=== PATIENT | female | born 1995 | race Caucasian/White ===

== ENCOUNTER 2019-08-01 | Emergency (ER) | payer OTHER, SELFPAY ==
[2019-08-01 00:03] VITALS: BP 132/70; PULSE 58; RESP 16; TEMP 36.3; O2SAT 99
--- NOTE | 2019-08-01 00:32 | ED.DENTAL ---
HPI - Dental/Oral General Chief complaint: Dental/Oral Stated complaint: Possible Abcessed tooth Source: patient Mode of arrival: ambulatory Limitations: no limitations History of Present Illness HPI Narrative: Cyst on roof of mouth x 1 week. Pain in cyst and along left maxillary gum line x 2 days. Unable to sleep tonight because of severe, sharp pain. It's made worse when she applies pressure to the area. She c/o of foul taste in her mouth this tonight. She sees Dr. Sauceda in [place]. No hx of tooth decay. 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 Recently had a box of sodas spill over onto her face. Takes OCP. Last LMP ~ 5 weeks ago. Cervical excision last month. Exacerbating factors: other (air flowing over her teeth) Related Data Allergies Allergy/AdvReac Type Severity Reaction Status Date / Time cefaclor Allergy Unknown Rash Verified 10/03/17 12:15 Penicillins Allergy Unknown Rash Verified 10/03/17 12:15 Review of Systems Constitutional: Constitutional: Denies chills and Denies fever(s) Gastrointestinal: Gastrointestinal: Denies nausea and Denies vomiting [facility] Past Medical History Medical History (Updated 08/01/19 @ 00:48 by Inder Huitron MD) Cervical cancer Surgical History Surgical History (Updated 08/01/19 @ 00:48 by Inder Huitron MD) Status post cervicectomy Social History Social History (Updated 08/01/19 @ 00:55 by Inder Huitron MD) Smoking status: Current every day smoker Substance use: current Substance use type: marijuana Last use: about once a week Exam Const: General: no acute distress Orientation/consciousness: patient oriented x3 HENMT: Face and sinus: other (left forehead, periorbital and maxillar bruising. No facial swelling. ) Mouth: No restricted motion Teeth and gingiva: dentition normal Teeth image: 1. abscess draining yellow fluid. Throat: posterior oropharynx normal Other: No facial swelling Bruising left forehead, periorbital and cheek area. Tender ~ 1 cm anterior palate cyst. bucchal aspect of Neck: Neck: no lymphadenopathy noted Course Course Emergency Course: Pt's pain not controlled with ibuprofen. Pt. warned of addictive nature of opioids. Given 1 table here, Rx for #6. Dose of clindamycin given. Pt. related care time 20 minutes. Vital Signs Vital signs: Vital Signs Temperature 36.3 C L 08/01/19 00:03 Pulse Rate 58 L 08/01/19 00:03 Respiratory Rate 16 08/01/19 00:03 Blood Pressure 132/70 08/01/19 00:03 Pulse Oximetry 99 08/01/19 00:03 Temperature 36.3 C L 08/01/19 00:03 Pulse Rate 58 L 08/01/19 00:03 Respiratory Rate 16 08/01/19 00:03 Blood Pressure 132/70 08/01/19 00:03 Pulse Oximetry 99 08/01/19 00:03 MDM - Dental/Oral Differential Diagnosis Differential diagnosis: Likely dental caries and dental abscess Discharge Plan Discharge Clinical Impression: Dental abscess Patient Disposition: Home, Self-Care Condition: Stable Instructions: Antibiotic Form, Dental Abscess (ED) Additional Instructions: Follow up with Dr. Sauceda in [place] Prescriptions: New hydrocodone-acetaminophen [[place]] 5-325 mg tablet 1 tablet PO Q6H PRN (Reason: pain) Qty: 6 RF: 0 clindamycin HCl 300 mg capsule 300 mg PO Q6H Qty: 27 RF: 0 Follow-up/Referrals: UNKNOWN,DOCTOR [Primary Care Provider] - Stand Alone Forms: Work/School Release IP Time of Disposition: 00:38 Discharge Date/Time: 08/01/19 00:47
[2019-08-01] MEDS: CLINDAMYCIN HCL 150 MG CAP 300 MG PO (00:43)
== END 2019-08-01 00:47 | disposition home or self-care (01) ==
PROVIDERS: Emergency Provider Family Medicine
DX: K04.7 Periapical abscess without sinus (principal)
CPT/HCPCS: 99283; A9270

== ENCOUNTER 2019-08-05 12:53 | Emergency (ER) | payer OTHER, SELFPAY ==
--- NOTE | 2019-08-05 13:00 | ED.DENTAL ---
HPI - Dental/Oral General Chief complaint: Dental/Oral Stated complaint: toothache Time Seen by Provider: 08/05/19 13:09 Source: patient Mode of arrival: ambulatory Limitations: no limitations History of Present Illness HPI Narrative: 23-year-old woman comes in today complaining of pain, swelling and drainage from a wound on the top of her mouth as well as swelling in her upper lip and around her upper incisors. She denies fever, nausea, vomiting, difficulty swallowing, difficulty breathing or nasal drainage. Her symptoms started a week or 2 ago. She has been on clindamycin since July 31. MD Complaint: tooth pain Teeth map: 1. Abscess draining pus and blood. 2. Swelling and tenderness. Onset (ago): week(s) Duration: constant Severity: severe Relieving factors: prescription analgesics Exacerbating factors: chewing Context: history of dental caries Associated symptoms: gum swelling Treatment prior to arrival: oral analgesic Related Data Home Medications Medication Instructions Recorded Confirmed tramadol 50 mg PO PRN PRN 08/05/19 08/05/19 Allergies Allergy/AdvReac Type Severity Reaction Status Date / Time cefaclor Allergy Unknown Rash Verified 10/03/17 12:15 Penicillins Allergy Unknown Rash Verified 10/03/17 12:15 Review of Systems Constitutional: Constitutional: Denies chills, Denies fever(s) and Denies weakness Eyes: Eyes: Denies change in vision and Denies photophobia ENT: Denies dysphagia, Denies nasal congestion and Denies sore throat Cardiovascular: Cardiovascular: Denies chest pain and Denies radiating jaw, neck or arm pain Respiratory: Respiratory: Denies cough, Denies dyspnea and Denies wheezing Gastrointestinal: Gastrointestinal: Denies abdominal pain, Denies diarrhea, Denies nausea and Denies vomiting Musculoskeletal: Musculoskeletal: Denies arthralgias and Denies joint swelling Integumentary/Breasts: Skin/Breast: Denies pruritus, Denies erythema and Denies rash Neurologic: Denies vertigo, Denies dizziness and Denies syncope Hematologic/Lymphatic: Hematologic/Lymphatic: Denies easy bleeding and Denies easy bruising Allergic/Immunologic: Allergic/Immunologic: Reports as per HPI, Reports lip swelling, Denies throat swelling, Denies tongue swelling and Denies wheezing PMFSH Past Medical History Medical History Cervical cancer Surgical History Surgical History Status post cervicectomy Social History Social History Smoking status: Current every day smoker Substance use: current Substance use type: marijuana Last use: about once a week Exam Const: General: healthy appearing and alert Orientation/consciousness: patient oriented x3 Other: Moderate acute distress HENMT: Ears: external ears normal, TM's normal bilaterally and EAC's normal Mouth: Yes Normal oral and palatal mucosa present and Yes moist mucous membranes Throat: posterior oropharynx normal Other: there is edematous swelling of the buccal gingiva adjacent to the upper incisors. there is a 1 x 2 cm abscess which is draining pus and blood on the roof of the mouth anteriorly. Mild percussion tenderness to the upper incisors. Eyes: Conjunctivae: conjunctivae normal Pupils: Equal, round and reactive pupils present EOM: EOMs intact bilaterally Resp: Effort & Inspection: normal respiratory effort, not labored, no retractions and no use of accessory muscles Auscultation: clear to auscultation bilaterally Cardio: Rate: regular rate Rhythm: regular rhythm Heart sounds: no murmurs Skin: General skin exam: normal color, no jaundice and no pallor Rashes: no rashes Neuro: General: patient oriented x3, moves all extremities, no focal motor deficits and CN's II-XI intact bilaterally Extrem: General: normal to inspection and no clubbing, cyanosis or
[2019-08-05 13:11] VITALS: BP 102/59; PULSE 73; RESP 16; TEMP 36.7; O2SAT 97
== END 2019-08-05 13:39 | disposition home or self-care (01) ==
PROVIDERS: Emergency Provider Emergency Medicine
DX: K04.7 Periapical abscess without sinus (principal)
CPT/HCPCS: 99283

== ENCOUNTER 2019-11-02 13:25 | Emergency (ER) | payer SELFPAY ==
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
[2019-11-02 13:30] VITALS: BP 106/63; PULSE 70; RESP 14; TEMP 37.3; O2SAT 99
[2019-11-02 14:03] VITALS: PULSE 69; RESP 13; O2SAT 100
== END 2019-11-02 14:03 | disposition home or self-care (01) ==
PROVIDERS: Emergency Provider Emergency Medicine
DX: Z04.3 Encounter for examination and observation following other accident (principal)
CPT/HCPCS: 99282

== ENCOUNTER 2020-01-14 11:50 | Outpatient (CLI) | payer OTHER, SELFPAY | END 2020-01-14 11:51 | disposition home or self-care (01) | PROVIDERS: Visit Provider Obstetrics & Gynecology Gynecology | DX: Z32.01 Encounter for pregnancy test, result positive (principal) | CPT/HCPCS: 36415; 84702 ==

== ENCOUNTER 2020-01-16 08:06 | Outpatient (CLI) | payer OTHER, SELFPAY | END 2020-01-16 08:07 | disposition home or self-care (01) | LOC: CHSLAB 08:10 | PROVIDERS: PCP Obstetrics & Gynecology Gynecology; Visit Provider Obstetrics & Gynecology Gynecology | DX: Z32.01 Encounter for pregnancy test, result positive (principal) | CPT/HCPCS: 36415; 84702 ==

== ENCOUNTER 2020-01-21 10:01 | Outpatient (CLI) | payer OTHER, SELFPAY ==
--- NOTE | ~2020-01-21 | US_ITS ---
EXAMINATION: US OB <= 14 weeks fetus DATE: 01/21/2020 10:49 INDICATION: Spotting during first trimester of TECHNIQUE: Real-time pelvic ultrasound utilizing transabdominal probe was performed. The david archuleta radiologist was not present for the study. COMPARISON: None. FINDINGS: The uterus measures 7.7 x 7.5 x 7.4 cm. There is an intrauterine gestational sac. A yolk sac and fet al pole are identified. The crown rump length measures 2.3 cm, which correlates with an estimated ges tational age of 9 weeks and 0 days. heart motion is identified measuring 165 beats per minute ( bpm) by M-mode Doppler. The right ovary measures 3.6 x 2.4 x 2.6 cm. The left ovary measures 2.4 x 1.9 x 2.9 cm. Vascular milagro w identified at both ovaries on color Doppler. There is no free fluid in the pelvis. IMPRESSION: 1. Single living fetus with heart rate of 165 bpm. 2. Gestational age by ultrasound of 9 weeks 0 day(s) +/- 6 day(s) with ultrasound estimated date of delivery (SANDRA) of 08/25/2020. Reviewed, dictated and finalized at location B. IMPRESSION: 1. Single living fetus with heart rate of 165 bpm. 2. Gestational age by ultrasound of 9 weeks 0 day(s) +/- 6 day(s) with ultraso und estimated date of delivery (SANDRA) of 08/25/2020.
== END 2020-01-21 10:02 | disposition home or self-care (01) ==
PROVIDERS: PCP Obstetrics & Gynecology Gynecology; Visit Provider Obstetrics & Gynecology Gynecology
DX: O26.851 Spotting complicating pregnancy, first trimester (principal)
CPT/HCPCS: 76801

== ENCOUNTER 2020-02-27 14:01 | Outpatient (CLI) | payer OTHER, SELFPAY ==
[2020-02-27 14:14] LABS: Basophils Absolute Auto 0.01 K/mm3 (0.00-0.10); Basophils Percent Auto 0.1 % (0.0-1.0); Eosinophils Absolute Auto 0.03 K/mm3 (0.02-0.50); Eosinophils Percent Auto 0.4 % (1.0-6.0); Hematocrit 38.3 % (35.0-49.0); Immature Granulocyte Absolute 0.05 K/mm3 (0.00-0.00); Immature Granulocyte Percent A 0.7 % (0.0-0.0); Lymphocytes Absolute Auto 1.92 K/mm3 (1.10-4.50); Lymphocytes Percent Auto 26.3 % (18.0-42.0); Mean Corpuscular HGB Conc 33.9 g/dL (32.0-36.0); Mean Corpuscular Volume 91.2 fL (78.0-102.0); Mean Platelet Volume 9.9 fl (9.2-11.8); Monocytes Absolute Auto 0.59 K/mm3 (0.10-0.90); Monocytes Percent Auto 8.1 % (2.0-11.0); Neutrophils Absolute Auto 4.7 K/mm3 (1.7-7.2); Neutrophils Percent Auto 64.4 % (50.0-70.0); Platelet Count Result 165 K/mm3 (150-420); Red Cell Distribution Width 12.4 % (11.6-14.4); White Blood Count 7.3 K/mm3 (4.8-10.8)
[2020-02-27 14:35] LABS: Hemoglobin A1C 4.7 % (<5.7)
[2020-02-27 15:04] LABS: HIV 1 P24 AG Negative (Negative); HIV 1/2 AB Negative (Negative)
[2020-02-29 18:52] LABS: RPR Screen Non-Reactive (Non-Reactive)
[2020-03-01 19:22] LABS: Hepatitis B Surface Antigen Nonreactive (Nonreactive)
[2020-03-05 11:16] LABS: Vitamin D 25 Hydroxy 15 ng/mL (30-100)
== END 2020-02-27 14:02 | disposition home or self-care (01) ==
LOC: CHSLAB 14:03
PROVIDERS: Visit Provider Obstetrics & Gynecology Gynecology
DX: Z34.92 Encounter for supervision of normal pregnancy, unspecified, second trimester (principal)
CPT/HCPCS: 36415; 82306; 83036; 85025; 86592; 86703; 86762; 86850; 86900; 86901

== ENCOUNTER 2020-06-09 10:15 | Outpatient (CLI) | payer OTHER, SELFPAY ==
[2020-06-09 11:50] LABS: Hematocrit 36.2 % (35.0-49.0); Hemoglobin 12.3 g/dL (12.0-15.0)
[2020-06-09 11:59] LABS: Glucose 1 Hour PP 50gm Dose 105 mg/dL (70-130)
[2020-06-09 12:24] LABS: HIV 1 P24 AG Negative (Negative); HIV 1/2 AB Negative (Negative)
[2020-06-12 11:58] LABS: Vitamin D 25 Hydroxy 18 ng/mL (30-100)
== END 2020-06-09 10:16 | disposition home or self-care (01) ==
LOC: CHSLAB 10:16
PROVIDERS: PCP Obstetrics & Gynecology Gynecology; Visit Provider Obstetrics & Gynecology Gynecology
DX: Z34.93 Encounter for supervision of normal pregnancy, unspecified, third trimester (principal)
CPT/HCPCS: 36415; 82306; 82947; 85014; 85018; 86703

== ENCOUNTER 2020-06-29 10:39 | Inpatient (IN) | payer OTHER, SELFPAY ==
[2020-06-29] VITALS (53 sets, daily range): BP systolic 86–124; BP diastolic 41–72; PULSE 57–112; TEMP 35.8–36.8; O2SAT 95–100; BMI 19.3
[2020-06-29] MEDS: TERBUTALINE SULFATE 1 MG/ML VIAL 0.25 MG SUB-Q (11:27)
[2020-06-29] MEDS: BETAMETHASONE SOD PHOS/ACETATE 30 MG/5 ML VIAL 12 MG IM (11:42)
[2020-06-29] MEDS: MAGNESIUM SULF 4 GM/WATER100ML 4 GM/100 ML BAG IVPB (11:45)
[2020-06-29] MEDS: CLINDAMYCIN 900 MG/D5W 50 ML 900 MG/50 ML PIGGYBACK 50 MG IVPB ×2 (12:11→20:19)
--- NOTE | 2020-06-29 12:23 | OBADM ---
This patient, Aurelia Rueda, admitted to the OB room OB Post [facility] for observation. Patient/family oriented to hospital policies and general routines including ID bracelet, bed and alarms, visiting hours, pain management, procedures, bathroom and other care routines, personal items, smoking policy, room service/diet, and visiting hours. Patient/Family are encouraged to report perceived risks to care and to ask questions if they do not understand what they are told or what they should do.
[2020-06-29 12:29] LABS: Add Urine Microscopic? YES; Appearance Urine Cloudy (Clear); Bacteria Urine 1+ /hpf; Bilirubin Urine Negative (Negative); Blood Urine Negative (Negative); Color Urine Yellow (Yellow); Glucose Urine UA Negative (Negative); Ketones Urine Negative (Negative); Leukocyte Esterase Ur Negative LEU/UL (Negative); Mucus Urine Few /lpf; Nitrate Urine Negative (Negative); Protein Urine 2+ mg/dL (Negative); RBC Urine 0-2 /hpf (0-2); Specific Grav Ur 1.021 (1.001-1.035); Squamous Epithelial Cell Urine Many /hpf (Few); Urobilinogen Urine Negative mg/dL (<2.0); WBC Urine 0-3 /hpf
[2020-06-29] MEDS: MAGNESIUM SULF 20GM/WATER500ML 500 ML 50 MG IV CONT ×2 (12:38→22:31)
[2020-06-29] MEDS: ONDANSETRON INJ 4 MG/2 ML VIAL IV PUSH (12:45)
--- NOTE | 2020-06-29 13:09 | WPDOBADMIT ---
Obstetrics - Admit Note Admission Note: record reviewed. No pertinent additions to the history and/or any subsequent changes in the physical findings that are not consistent with the expected course of the were found. Additions to the history and/or subsequent changes in the physical findings follow. Here at 31 weeks with active labor. Noted to be 6 cm at admission with contractions q 5 min. Given Terb and Magnesium. Given steroids. Will try to prolong delivery if possible to get steroids on board. Discussed with patient possible transfer and recommend to deliver here and stabilize rather than risk SROM and delivery in the ambulance. Patient agrees to plan. Contractions now rare and milder. Continue Magnesium at 2 g/h. FHTs reassuring.
[2020-06-29 13:24] LABS: Amphetamine Screen Urine Negative (Negative)
[2020-06-29 13:29] LABS: Barbiturate Screen Urine Negative (Negative); Benzodiazepines Screen Urine Negative (Negative)
[2020-06-29 13:29] LABS: Basophils Percent Auto 0.3 % (0.2-1.2); Eosinophils Percent Auto 0.2 % (0-4.4); Hematocrit 35.3 % (37.0-47.0); Hemoglobin 12.2 g/dL (12.0-15.0); Immature Granulocyte Percent A 0.9 % (0-0.5); Lymphocytes Absolute Auto 1.39 K/mm3 (0.9-3.2); Lymphocytes Percent Auto 12.9 % (18.3-44.2); Mean Corpuscular HGB Conc 34.6 g/dl (32-36); Mean Corpuscular Hemoglobin 31.3 pg (26-34); Mean Corpuscular Volume 90.5 fl (80-100); Mean Platelet Volume 9.9 fl (7.4-10.4); Monocytes Absolute Auto 0.4 K/mm3 (0.1-0.6); Monocytes Percent Auto 3.8 % (2.6-8.5); Neutrophils Absolute Auto 8.8 K/mm3 (1.3-6.7); Neutrophils Percent Auto 81.9 % (45.5-73.1); Platelet Count Result 158 k/mm3 (150-375); Red Cell Distribution Width 12.9 % (11.5-14.5); White Blood Count 10.8 K/mm3 (4.5-10.0)
[2020-06-29 13:30] LABS: Cannabinoid Screen Urine Positive (Negative); Cocaine Screen Urine Negative (Negative); Methadone Screen Urine Negative (Negative); Opiate Screen Urine Negative (Negative); Phencyclidine Screen Urine Negative (Negative)
[2020-06-29 13:31] LABS: HIV 1/2 Ab P24 Ag Result Negative (Negative)
--- NOTE | 2020-06-29 19:18 | PM.OBPNVD ---
OB - PN: Subj Subjective Date/time seen: 06/29/20 19:18 Interval history: Not feeling many contractions. Feels ok on Magnesium OB - PN: Obj Data Labs CBC & Chem 7: 06/29/20 13:22 Labs: Laboratory Results - last 24 hr 06/29/20 06/29/20 06/29/20 12:05 12:15 12:15 WBC RBC Hgb Hct MCV MCH MCHC RDW Plt Count MPV Immature Gran % (Auto) Neut % (Auto) Lymph % (Auto) [place] % (Auto) Eos % (Auto) Baso % (Auto) Lymph # (Auto) [place] # (Auto) Eos # (Auto) Baso # (Auto) Abs Immat Gran (auto) Absolute Neuts (auto) Absolute Nucleated RBC Nucleated RBC % Urine Color Yellow Urine Appearance Cloudy H Urine pH 8.0 Ur Specific [place] 1.021 Urine Protein 2+ H Urine Glucose (UA) Negative Urine Ketones Negative Ur Blood (Man) Negative Urine Nitrate Negative Urine Bilirubin Negative Urine Urobilinogen Negative Leukocyte Esterase Rfl Negative Urine RBC 0-2 Urine WBC 0-3 Ur Squamous Epith Cells Many H Urine Bacteria 1+ H Urine Mucus Few H Urine Opiates Screen Negative Urine Methadone Screen Negative Ur Barbiturates Screen Negative Ur Phencyclidine Scrn Negative Ur Amphetamine Screen Negative U Benzodiazepines Scrn Negative Urine Cocaine Screen Negative U Cannabinoids Screen Positive A HIV 1&2 Ab/P24 Ag 4thGn Blood Type O Positive Antibody Screen Negative 06/29/20 06/29/20 12:15 13:22 WBC 10.8 H RBC 3.90 L Hgb 12.2 Hct 35.3 L MCV 90.5 MCH 31.3 MCHC 34.6 RDW 12.9 Plt Count 158 MPV 9.9 Immature Gran % (Auto) 0.9 H Neut % (Auto) 81.9 H Lymph % (Auto) 12.9 L [place] % (Auto) 3.8 Eos % (Auto) 0.2 Baso % (Auto) 0.3 Lymph # (Auto) 1.39 [place] # (Auto) 0.4 Eos # (Auto) 0.0 Baso # (Auto) 0.0 Abs Immat Gran (auto) 0.10 H Absolute Neuts (auto) 8.8 H Absolute Nucleated RBC 0.0 Nucleated RBC % 0.0 Urine Color Urine Appearance Urine pH Ur Specific [place] Urine Protein Urine Glucose (UA) Urine Ketones Ur Blood (Man) Urine Nitrate Urine Bilirubin Urine Urobilinogen Leukocyte Esterase Rfl Urine RBC Urine WBC Ur Squamous Epith Cells Urine Bacteria Urine Mucus Urine Opiates Screen Urine Methadone Screen Ur Barbiturates Screen Ur Phencyclidine Scrn Ur Amphetamine Screen U Benzodiazepines Scrn Urine Cocaine Screen U Cannabinoids Screen HIV 1&2 Ab/P24 Ag 4thGn Negative Blood Type Antibody Screen OB - PN A/P Assessment and Plan (1) 31 to 32 weeks gestation of : Status: Acute Assessment and Plan: 31 6/7 wks (2) labor: Code(s): O60.00 - labor without delivery, unspecified trimester Status: Acute Assessment and Plan: With advanced dilation contractions rare continue magnesium and abx steroids given at 1142 am today (3) Breech presentation: Code(s): O32.1XX0 - Maternal care for breech presentation, not applicable or unspecified Status: Acute Assessment and Plan: Was considering transfer but with double footling breech presentation at 6 cm dilated recommend continue with plan here. Reviewed need for csection for delivery when water breaks or if contractions recur in a pattern. Patient and her mother agree to plan. Time Spent With Patient Time: Total time spent is greater than 50% in coordination of care (as documented) at patient's floor/unit and/or counseling patient: Exam Narrative: Exam Narrative: bedside u/s-double footling breech with grossly normal BRISA
[2020-06-29] MEDS: FAMOTIDINE 20 MG/2 ML VIAL IV PUSH (20:00)
[2020-06-30] VITALS (43 sets, daily range): BP systolic 91–113; BP diastolic 38–67; PULSE 57–94; RESP 15–16; TEMP 35.8–36.9
[2020-06-30] MEDS: LACTATED RINGERS 1,000 ML 75 ML IV CONT ×2 (03:22→19:15)
[2020-06-30] MEDS: CLINDAMYCIN 900 MG/D5W 50 ML 900 MG/50 ML PIGGYBACK 50 MG IVPB ×3 (04:06→20:09)
[2020-06-30] MEDS: ONDANSETRON INJ 4 MG/2 ML VIAL IV PUSH ×3 (05:36→21:28)
[2020-06-30 07:18] LABS: Rapid Plasma Reagin Non-Reactive (NonReactive)
[2020-06-30] MEDS: CALCIUM CARBONATE (TUMS) 500 MG (200 MG ELEMENTAL) PO ×2 (08:45→11:43)
[2020-06-30] MEDS: ACETAMINOPHEN 500 MG TABLET 1000 MG PO (08:46)
--- NOTE | 2020-06-30 09:54 | PM.OBPNVD ---
OB - PN: Subj Subjective Date/time seen: 06/30/20 09:54 Interval history: Not feeling many contractions. Feels blurred vision and weak with magnesium this morning. No other complaints. OB - PN: Obj Data Labs CBC & Chem 7: 06/29/20 13:22 Labs: Laboratory Results - last 24 hr 06/29/20 06/29/20 06/29/20 12:05 12:05 12:15 WBC RBC Hgb Hct MCV MCH MCHC RDW Plt Count MPV Immature Gran % (Auto) Neut % (Auto) Lymph % (Auto) [place] % (Auto) Eos % (Auto) Baso % (Auto) Lymph # (Auto) [place] # (Auto) Eos # (Auto) Baso # (Auto) Abs Immat Gran (auto) Absolute Neuts (auto) Absolute Nucleated RBC Nucleated RBC % Urine Color Urine Appearance Urine pH Ur Specific [place] Urine Protein Urine Glucose (UA) Urine Ketones Ur Blood (Man) Urine Nitrate Urine Bilirubin Urine Urobilinogen Leukocyte Esterase Rfl Urine RBC Urine WBC Ur Squamous Epith Cells Urine Bacteria Urine Mucus Urine Opiates Screen Negative Urine Methadone Screen Negative Ur Barbiturates Screen Negative Ur Phencyclidine Scrn Negative Ur Amphetamine Screen Negative U Benzodiazepines Scrn Negative Urine Cocaine Screen Negative U Cannabinoids Screen Positive A RPR Non-reactive HIV 1&2 Ab/P24 Ag 4thGn Blood Type O Positive Antibody Screen Negative 06/29/20 06/29/20 06/29/20 12:15 12:15 13:22 WBC 10.8 H RBC 3.90 L Hgb 12.2 Hct 35.3 L MCV 90.5 MCH 31.3 MCHC 34.6 RDW 12.9 Plt Count 158 MPV 9.9 Immature Gran % (Auto) 0.9 H Neut % (Auto) 81.9 H Lymph % (Auto) 12.9 L [place] % (Auto) 3.8 Eos % (Auto) 0.2 Baso % (Auto) 0.3 Lymph # (Auto) 1.39 [place] # (Auto) 0.4 Eos # (Auto) 0.0 Baso # (Auto) 0.0 Abs Immat Gran (auto) 0.10 H Absolute Neuts (auto) 8.8 H Absolute Nucleated RBC 0.0 Nucleated RBC % 0.0 Urine Color Yellow Urine Appearance Cloudy H Urine pH 8.0 Ur Specific [place] 1.021 Urine Protein 2+ H Urine Glucose (UA) Negative Urine Ketones Negative Ur Blood (Man) Negative Urine Nitrate Negative Urine Bilirubin Negative Urine Urobilinogen Negative Leukocyte Esterase Rfl Negative Urine RBC 0-2 Urine WBC 0-3 Ur Squamous Epith Cells Many H Urine Bacteria 1+ H Urine Mucus Few H Urine Opiates Screen Urine Methadone Screen Ur Barbiturates Screen Ur Phencyclidine Scrn Ur Amphetamine Screen U Benzodiazepines Scrn Urine Cocaine Screen U Cannabinoids Screen RPR HIV 1&2 Ab/P24 Ag 4thGn Negative Blood Type Antibody Screen OB - PN A/P Assessment and Plan (1) labor: Code(s): O60.00 - labor without delivery, unspecified trimester Status: Acute Assessment and Plan: Continue Magnesium. Decreased to 1.8 g/h. Second steroid dose at 1130 (2) Breech presentation: Code(s): O32.1XX0 - Maternal care for breech presentation, not applicable or unspecified Status: Acute (3) 32 weeks gestation of : Code(s): Z3A.32 - 32 weeks gestation of Status: Acute Time Spent With Patient Time: Total time spent is greater than 50% in coordination of care (as documented) at patient's floor/unit and/or counseling patient: Exam GI: GI Palp: No abdominal tenderness and Yes Soft to palpation
[2020-06-30] MEDS: FAMOTIDINE 20 MG/2 ML VIAL IV PUSH ×2 (12:02)
[2020-06-30] MEDS: BETAMETHASONE SOD PHOS/ACETATE 30 MG/5 ML VIAL 12 MG IM (12:09)
[2020-06-30] MEDS: MAGNESIUM SULF 20GM/WATER500ML 500 ML 50 MG IV CONT (19:56)
--- NOTE | 2020-06-30 23:21 | PC.NURSE ---
[id number] paged [id number] paged [id number] responded to page. updated on pt status. Spoke with MD cochran pt complaints of mucous/light brown vaginal discharge. stated to not perform SVE unless pt feels increase pressure/pain. No other orders at this time.
[2020-07-01] VITALS (34 sets, daily range): BP systolic 91–142; BP diastolic 40–100; PULSE 43–82; RESP 14–35; TEMP 36.1–36.5; O2SAT 100
--- NOTE | 2020-07-01 00:50 | PC.NURSE ---
0000 Pt sleeping at this time. No complaints of nausea/vomiting/pain.
[2020-07-01] MEDS: CLINDAMYCIN 900 MG/D5W 50 ML 900 MG/50 ML PIGGYBACK 50 MG IVPB ×3 (04:00→20:07)
[2020-07-01] MEDS: ONDANSETRON INJ 4 MG/2 ML VIAL IV PUSH ×3 (05:35→20:10)
[2020-07-01] MEDS: MAGNESIUM SULF 20GM/WATER500ML 500 ML 50 MG IV CONT ×2 (07:12→16:52)
[2020-07-01] MEDS: FAMOTIDINE 20 MG/2 ML VIAL IV PUSH (07:27)
[2020-07-01] MEDS: TERBUTALINE SULFATE 1 MG/ML VIAL 0.25 MG SUB-Q (07:55)
--- NOTE | 2020-07-01 08:10 | PM.OBPNVD ---
OB - PN: Subj Subjective Date/time seen: 07/01/20 08:10 Interval history: Onset of mild contractions q 4-5 min this past hour. No leaking. No pressure vaginally. OB - PN: Obj Data Labs CBC & Chem 7: 06/29/20 13:22 OB - PN A/P Assessment and Plan (1) 32 weeks gestation of : Code(s): Z3A.32 - 32 weeks gestation of Status: Acute Assessment and Plan: 32 05/04 (2) Breech presentation: Code(s): O32.1XX0 - Maternal care for breech presentation, not applicable or unspecified Status: Acute (3) labor: Code(s): O60.00 - labor without delivery, unspecified trimester Status: Acute Assessment and Plan: increase Magnesium to 2 and given sq terb x 1 discussed with patient if contractions continue then will proceed with csection. Time Spent With Patient Time: Total time spent is greater than 50% in coordination of care (as documented) at patient's floor/unit and/or counseling patient: Exam Narrative: Exam Narrative: FHTs reactive GI: GI Palp: No abdominal tenderness
--- NOTE | 2020-07-01 08:34 | PC.NURSE ---
0755- at bedside to evaluate pt. POC discussed.
[2020-07-01] MEDS: LACTATED RINGERS 1,000 ML 75 ML IV CONT (10:50)
--- NOTE | 2020-07-01 12:55 | PC.NURSE ---
1255-Pt states she is feeling pressure and the need to pee, when she attempts to void she is only able to go 50cc.
--- NOTE | 2020-07-01 13:06 | PC.NURSE ---
2360- called,informed pt has had 7 ctx in the last hour and rates them a 7. Orders received to increase Magnesium Sulfate to 2.5 grams/hr. Nursery aware of increase in ctx and magnesium.
--- NOTE | 2020-07-01 13:08 | PC.NURSE ---
1255-Pt states she feels like she might be leaking fluid, ROM plus performed.
[2020-07-01] MEDS: CALCIUM CARBONATE (TUMS) 500 MG (200 MG ELEMENTAL) PO (16:05)
--- NOTE | 2020-07-01 16:42 | PC.NURSE ---
1640- called, informed that Magnesium Sulfate was turned down to 2grams/hr d/t pt c/o not feeling well on it. Instructed pt that if she starts roseline again we will have to turn it back up.
--- NOTE | 2020-07-01 19:21 | PC.NURSE ---
1856 Naz VASQUEZ called and updated on pt status. ok with pt going back on regular diet at this time. No new orders.
--- NOTE | 2020-07-01 23:21 | PM.PROC ---
Procedure Note - Detailed Date of procedure: 07/01/20 Pre-op diagnosis: contractions IUP 32 2/7 wks; PTL with advanced dilation; Footling breech; PPROM; Requests sterilization Post-op diagnosis: same Procedure performed: emergent LTCS; BTL Description of procedure: The patient had spontaneous rupture of clear fluid was therefore taken for emergent . Upon my arrival, the patient was asked again if she did indeed want a tubal ligation and she verbalized that she indeed wanted a tubal ligation. She was then moved immediately to the operating room and staff was mobilized. I placed the Mccallum catheter under sterile conditions. Once everyone was in place the patient was prepped and draped and placed under general anesthesia. A Pfannenstiel skin incision was then made with a scalpel and carried down to the underlying layer of fascia which was nicked in the midline. Fascial incision was extended laterally using Collazo scissors and the fascia was dissected off using sharp and blunt dissection anteriorly and posteriorly. The peritoneum was entered bluntly and the bladder blade was placed. The vesicouterine peritoneum was tented entered with Metzenbaum was and extended laterally. The bladder flap is then created digitally. The bladder blade is replaced. The lower uterine segment was incised in a transverse fashion with a scalpel and extended laterally using blunt traction. The infant was brought up into the incision the infant's feet and hips were delivered through the incision and the was delivered to the scapula. The was rotated and both arms spontaneously delivered and the head delivered with extension of the body. The cord was clamped and cut and the handed to the waiting nursery nurse and gauntlet pairer. had good tone and good color on the abdomen and was breathing spontaneously. The placenta was then removed using manual traction after cord blood was taken for lab. The uterus was cleared of all clots and debris and exteriorized. The uterine incision is closed using 0 Monocryl in a running locked fashion with the same suture used for imbrication. Good hemostasis is noted. The right tube was grasped with a [place], crossclamped using a Z clamp, and excised. The pedicle was tied off using 0 Vicryl x2. The left tube was grasped with [place], cross clamped using a Z clamp, and excised. The pedicle was tied off using 0 Vicryl x2. The cul-de-sac is irrigated and the uterus is returned to the abdomen. The gutters are irrigated. The tubal pedicles and the uterine incision are again inspected and all 3 sites were noted to be hemostatic. Fascia is then closed using 0 Vicryl in a running fashion. Subcutaneous tissues are irrigated and made hemostatic using Bovie cautery. Skin is closed using 4 0 Vicryl in a subcuticular fashion. As the patient was not shaved prior to the surgery Steri-Strips and benzoin were used followed by a sterile dressing. Sponge, needle, and instrument counts are correct per the OR staff. The patient was awakened from anesthesia and taken to recovery in stable condition. Anesthesia: GETA Surgeon: Alejandra Childs MD Drains: Yes (mccallum) Packing: No Pathology: yes (placenta; tubes) Complications: No immediate complications Condition: stable Disposition: PACU Findings: Male double footling breech; 8/9 scores; 4#1oz; normal appearing tubes, ovaries, and uterus
--- NOTE | 2020-07-01 23:38 | PM.OBDSVD ---
DS: Admitting Diagnosis Admitting Diagnosis Admitting Diagnosis: IUP 31 6/7 wks; PTL with advanced dilation; Breech DS: Discharge Diagnosis Discharge Diagnosis (1) 32 weeks gestation of : Code(s): Z3A.32 - 32 weeks gestation of Status: Acute Assessment and Plan: 32 2/7 wks-delivered (2) Breech presentation: Code(s): O32.1XX0 - Maternal care for breech presentation, not applicable or unspecified Status: Acute Assessment and Plan: double footling breech (3) labor: Code(s): O60.00 - labor without delivery, unspecified trimester Status: Acute Assessment and Plan: with advance dilation (4) premature rupture of membranes (PPROM) delivered, current hospitalization: Code(s): O42.919 - premature rupture of membranes, unspecified as to length of time between rupture and onset of labor, unspecified trimester Status: Acute Assessment and Plan: On 07/01/20 OB - DS: Summary OB Procedures : NST, Ultrasound and PTL Mgmt OB Procedures Intrapartum: low cervical, transverse and Tubal ligation OB Procedures: : None Peripartum Data Delivery Method: Emergency Section complications: none Status at Discharge Functional status at discharge: independent ambulation Overall status at discharge: patient is progressing back to baseline Time Spent with Patient Time attestation: Total time spent providing and/or coordinating discharge services: Discharge Plan Discharge Attending physician on discharge: Alejandra Childs Discharging Clinician: Alejandra Childs Anticipated Discharge Date/Time: 07/04/20 23:42 Patient Disposition: Home, Self-Care Activity: may shower, may drive after 2 weeks and pelvic rest Diet: regular Wound Care Instructions: incision open to air Patient Instructions: Antibiotic Form Stand Alone Forms: General Discharge Information Follow-up/Referrals: Alejandra Childs MD [Physician] - 1 Week (and 6 wks) Discharge Medications: New hydrocodone-acetaminophen 5-325 mg Tablet 1 tablet PO Q3H PRN (Reason: Moderate Pain (4-6)) Qty: 25 RF: 0 Continued Gummies 2 tablet PO DAILY RF: 0 Discontinued lansoprazole [Prevacid] 15 mg Capsule,Delayed Release(Dr/Ec) 15 mg PO DAILY RF: 0 Date of admission: 07/01/20 12:55 Primary Care Provider: PHYSICIAN,PRODUCTION CONTROL SPECIALIST Admitting Provider: Alejandra Childs Attending physician on admission: Alejandra Childs Condition: Stable
--- NOTE | 2020-07-01 23:45 | WPDANESEPP ---
Anes - Eval Pre Procedure Procedure: C section with BTL Date/Time: 07/01/20 23:45 Surgeon: Naz Preop Diagnosis: Breech, 32 wks pre term Pre Op Diagnosis: contractions Patient Data Age: 24 Gender: F Height: 5 ft Weight: 45 kg Last Vital Signs Temp 97.5 F L 07/01/20 20:23 Pulse 52 L 07/01/20 23:36 Resp 14 07/01/20 20:23 BP 117/81 07/01/20 23:36 Pulse Ox 100 07/01/20 23:41 Allergies Allergy/AdvReac Type Severity Reaction Status Date / Time cefaclor Allergy Unknown Rash Verified 01/21/20 14:31 Penicillins Allergy Unknown Rash Verified 01/21/20 14:31 Home Medications Medication Instructions Recorded Confirmed Type Gummies 2 tablet PO DAILY 06/29/20 06/29/20 History lansoprazole [Prevacid] 15 mg PO DAILY 06/29/20 06/29/20 History Patient hx anesthesia problems: none Family hx anesthesia problems: none PMFSH Past Medical History Medical History Anxiety Cervical cancer Chronic GERD Marijuana smoker Marijuana use labor with term delivery Smoker Surgical History Surgical History History of cholecystectomy Status post cervicectomy Social History Social History Smoking packs per day: 0.5 Smoking cigarettes per day: 10.0 Years smoked: 8 Smoking pack-years: 4.00 Smoking status: Current every day smoker Tobacco type: cigarettes Second hand tobacco smoke exposure: No Alcohol intake: never Substance use: current Substance use type: marijuana Last use: about once a week Gender identity (if verbalized by the patient): Female Spiritual care concerns: No Exam Day of Procedure 07/01/20 23:45 Patient weight: normal Heart: regular rate and rhythm Lungs: clear to auscultation Airway: Mallampati scale class 1 Neurological: alert and oriented
--- NOTE | 2020-07-01 23:52 | WPDANESEFPP ---
Anes - Eval Final PreProcedure Day of Procedure 07/01/20 23:52 Patient weight: normal Heart: regular rate and rhythm Lungs: clear to auscultation Airway: Mallampati scale class 1 Neurological: alert and oriented Last oral intake: >/= 8 hours ASA classification: III Emergent: yes Anesthetic plan: proceed Anesthesia type and monitoring: general and standard monitoring Informed Consent: The patient's anesthetic plan and its attendant risks and benefits were discussed with the patient/family/POA. Questions were solicited and answers provided to the satisfaction of the patient/family/POA.
[2020-07-02] VITALS (51 sets, daily range): BP systolic 100–132; BP diastolic 60–86; PULSE 43–136; RESP 12–25; TEMP 36.6–37.1; O2SAT 87–100
[2020-07-02] MEDS: fentaNYL CITRATE INJ (*CRX) 100 MCG/2 ML VIAL 25 MCG IV PUSH ×4 (00:02→00:39)
--- NOTE | 2020-07-02 00:44 | ECG_ITS ---
Measurements Intervals [place] Rate: 70 P: 33 CO: 121 QRS: 63 QRSD: 94 T: 48 QT: 442 QTc: 479 Interpretive Statements SINUS RHYTHM INCOMPLETE RIGHT BUNDLE BRANCH BLOCK T WAVE ABNORMALITY- PROBABLY PERSISTENT JUVENILE T WAVE INVERSIONS BASELINE ARTIFACT- I, II, III, AVR, AVL, AVF, V1, V3 BORDERLINE ECG Electronically Signed On 07-02-2020 7:08:15 CDT by Xavier Mendez D.O.
[2020-07-02] MEDS: OXYTOCIN 30 UNITS/NS 500 ML 30 UNITS/500 ML BAG 125 UNITS IV CONT (01:00)
[2020-07-02] MEDS: KETOROLAC 30 MG/ML VIAL (*BKC) IV PUSH (01:25)
--- NOTE | 2020-07-02 02:00 | OBPPTRN ---
Patient transferred to post room #279 via stretcher. Support person present. Oriented to unit, room, information board, rooming in, admission packet and security measures. Patient verbalizes understanding.
[2020-07-02] MEDS: FENTANYL 600MCG/NS30MLPCA(*CRX 600 MCG/30 ML PCA.VIAL IV CONT (02:53)
[2020-07-02 05:24] LABS: Basophils Percent Auto 0.2 % (0.2-1.2); Hematocrit 30.8 % (37.0-47.0); Hemoglobin 10.3 g/dL (12.0-15.0); Immature Granulocyte Absolute 0.11 K/mm3 (0.00-0.031); Immature Granulocyte Percent A 0.9 % (0-0.5); Lymphocytes Absolute Auto 1.82 K/mm3 (0.9-3.2); Lymphocytes Percent Auto 14.3 % (18.3-44.2); Mean Corpuscular HGB Conc 33.4 g/dl (32-36); Mean Corpuscular Hemoglobin 30.9 pg (26-34); Mean Corpuscular Volume 92.5 fl (80-100); Monocytes Absolute Auto 1.2 K/mm3 (0.1-0.6); Monocytes Percent Auto 9.7 % (2.6-8.5); Neutrophils Absolute Auto 9.6 K/mm3 (1.3-6.7); Neutrophils Percent Auto 74.9 % (45.5-73.1); Platelet Count Result 153 k/mm3 (150-375); Red Blood Count 3.33 M/mm3 (4.2-5.4); Red Cell Distribution Width 12.9 % (11.5-14.5); White Blood Count 12.8 K/mm3 (4.5-10.0)
[2020-07-02] MEDS: DEXTROSE 5%/0.45% SOD CHL 1,000 ML 125 ML IV CONT (05:31)
--- NOTE | 2020-07-02 07:45 | WPDANLDPN2 ---
Anes-Prog Note L&D Date/Time: 07/02/20 07:45 Comfortable throughout: section Neuro status: Neuro function grossly intact. Cardiovascular status: normal Respiratory status: normal Airway patency: baseline Mental status: baseline Post-Op hydration status: normal (mccallum in place) Vital Signs: Last Vital Signs Temp 36.9 C 07/02/20 05:00 Pulse 61 07/02/20 05:00 Resp 18 07/02/20 05:55 BP 100/60 07/02/20 05:00 Pulse Ox 98 07/02/20 05:55 Pain score (VAS): 0 I/O: Intake & Output 07/01/20 07/01/20 07/02/20 15:59 23:59 07:59 Intake Total 1050 740 500 Output Total 950 765 680 Balance 100 -25 -180 Post-procedural complaints: none Patient feedback: Patient satisfied with anesthetic care.patient was a general anesthetic for c/s. she was resting comfortably with no complaints.
--- NOTE | 2020-07-02 07:47 | P.PNAN_ITS ---
Anes - Prog Note Post-Op Date/Time: 07/02/20 07:47 Cardiovascular status: normal Respiratory status: normal Airway patency: baseline Mental status: baseline Post-Op hydration status: normal (mccallum in place. IVF infusing) Vital Signs: Last Vital Signs Temp 36.9 C 07/02/20 05:00 Pulse 61 07/02/20 05:00 Resp 18 07/02/20 05:55 BP 100/60 07/02/20 05:00 Pulse Ox 98 07/02/20 05:55 Pain Score (VAS): 0 I/O: Intake & Output 07/01/20 07/01/20 07/02/20 15:59 23:59 07:59 Intake Total 1050 740 500 Output Total 950 765 680 Balance 100 -25 -180 Laboratory Tests 07/02/20 05:11 07/02/20 05:11 WBC 12.8 H RBC 3.33 L Hgb 10.3 L Hct 30.8 L MCV 92.5 MCH 30.9 MCHC 33.4 RDW 12.9 Plt Count 153 MPV 10.0 Immature Gran % (Auto) 0.9 H Neut % (Auto) 74.9 H Lymph % (Auto) 14.3 L [place] % (Auto) 9.7 H Eos % (Auto) 0.0 Baso % (Auto) 0.2 Lymph # (Auto) 1.82 [place] # (Auto) 1.2 H Eos # (Auto) 0.0 Baso # (Auto) 0.0 Abs Immat Gran (auto) 0.11 H Absolute Neuts (auto) 9.6 H Absolute Nucleated RBC 0.0 Nucleated RBC % 0.0 Post-procedural complaints: none Patient Feedback: Patient satisfied with anesthetic care.
[2020-07-02] MEDS: IBUPROFEN 600 MG TABLET PO ×2 (10:54→21:00)
[2020-07-02] MEDS: HYDROcodone/acetaminophen (*CRX) 5-325 MG TABLET 1 TAB PO ×2 (10:54→16:25)
--- NOTE | 2020-07-02 16:39 | P.PNOB_ITS ---
OB - PN: Subj Subjective Date/time seen: 07/02/20 16:39 doing okay pain controlled baby doing well breathing with out assistance or O2 Interval history: Onset of mild contractions q 4-5 min this past hour. No leaking. No pressure vaginally. OB - PN: Obj Data Labs CBC & Chem 7: 07/02/20 05:11 Labs: Laboratory Results - last 24 hr 07/02/20 05:11 WBC 12.8 H RBC 3.33 L Hgb 10.3 L Hct 30.8 L MCV 92.5 MCH 30.9 MCHC 33.4 RDW 12.9 Plt Count 153 MPV 10.0 Immature Gran % (Auto) 0.9 H Neut % (Auto) 74.9 H Lymph % (Auto) 14.3 L [place] % (Auto) 9.7 H Eos % (Auto) 0.0 Baso % (Auto) 0.2 Lymph # (Auto) 1.82 [place] # (Auto) 1.2 H Eos # (Auto) 0.0 Baso # (Auto) 0.0 Abs Immat Gran (auto) 0.11 H Absolute Neuts (auto) 9.6 H Absolute Nucleated RBC 0.0 Nucleated RBC % 0.0 OB - PN A/P Assessment and Plan (1) 32 weeks gestation of : Code(s): Z3A.32 - 32 weeks gestation of Status: Acute (2) S/P : Code(s): Z98.891 - History of uterine scar from previous surgery Status: Acute Assessment and Plan: continue with pp care. desires pass to see baby. Time Spent With Patient Time: Total time spent is greater than 50% in coordination of care (as docum ented) at patient's floor/unit and/or counseling patient: Exam Narrative: Exam Narrative: inc c/d/i with out steristrips
--- NOTE | 2020-07-02 19:52 | PC.NURSE ---
1815 left to go on a 4 hour Pass in a W/C to visit at [facility]. Pts Mother driving her in the car.
--- NOTE | 2020-07-02 20:53 | PC.NURSE ---
Patient back from therapeutic pass visiting infant at [facility].
[2020-07-02] MEDS: HYDROcodone/acetaminophen (*CRX) 10-325 MG TABLET 1 TAB PO (20:59)
[2020-07-03] MEDS: HYDROcodone/acetaminophen (*CRX) 5-325 MG TABLET 1 TAB PO ×3 (00:12→08:47)
[2020-07-03] MEDS: IBUPROFEN 600 MG TABLET PO (04:04)
--- NOTE | 2020-07-03 07:53 | P.PNOB_ITS ---
OB - PN: Subj Subjective Date/time seen: 07/03/20 07:53 Interval history: Onset of mild contractions q 4-5 min this past hour. No leaking. No pressure vaginally. Patient comments: no complaints and pain well controlled [place] baby status: doing well OB - PN: Obj Data Labs CBC & Chem 7: 07/02/20 05:11 OB - PN A/P Plan day: 2 Plan: routine care and discharge home Time Spent With Patient Time: Total time spent is greater than 50% in coordination of care (as documented) at patient's floor/unit and/or counseling patient: Exam Narrative: Exam Narrative: inc c/d/i : Bimanual exam- vagina & uterus: other (Uterus firm, nt @U)
[2020-07-03 08:15] VITALS: BP 109/63; PULSE 50; RESP 16; TEMP 37.3; O2SAT 100
[2020-07-03] MEDS: DOCUSATE SODIUM 100 MG CAPSULE PO (08:47)
[2020-07-03] MEDS: MULTIVIT/MIN/PREN/FOL AC/IRON TABLET 1 TAB PO (08:47)
--- NOTE | 2020-07-03 09:17 | PCCCNOTE ---
Care Coordination Note: Received call from Gilma Pedraza Lead Machinist at [facility] regarding baby shweta Rueda transferred to their hospital on 07/01/20. Per Gilma DCFS is currently open and providing services to family. Gilma requesting any information regarding concerns of substance use. Pt. tested positive for THC upon admission to the hospital, information was faxed to Gilma Pedraza @ [phone]. Online DCFS report was filed regarding concerns including open DCFS case and positive THC screening upon admission. DCFS intake ID [id number]. Information was then provided to Gilma Barnes at [facility].
[2020-07-04 08:45] VITALS: BP 104/64; PULSE 88; RESP 20; TEMP 37.1; O2SAT 100
--- NOTE | 2020-07-11 00:14 | P.HP_ITS ---
H&P: HPI History of Present Illness Date/Time: 07/11/20 00:14 Chief Complaint: contractions Narrative: Admitted for contractions at 31 4/7 wks and noted to be 6 cm. Given Magnesium, steroids, and ampicillin. Patient stable until PROM on 07/01. Taken for emergent csection for known double footling breech. Patient expressed desire for no further children in office and on admit. Patient informed at that time a tubal is a permanent and irreversible procedure rendering her sterile. Patient asked on my arrival on day of delivery if still wanted tubal ligation and stated yes. [facility] Past Medical History Medical History Anxiety Chronic GERD Marijuana smoker Marijuana use (normal spontaneous vaginal delivery) x 2 both at 36 weeks PIH with first labor with term delivery Smoker Surgical History Surgical History (Updated 07/11/20 @ 00:21 by Alejandra Childs MD) History of cholecystectomy S/P 07/01/20 S/P LEEP for ANA 3 on 07/15 Status post cervicectomy Social History Social History Smoking packs per day: 0.5 Smoking cigarettes per day: 10.0 Years smoked: 8 Smoking pack-years: 4.00 Smoking status: Current every day smoker Tobacco type: cigarettes Second hand tobacco smoke exposure: No Alcohol intake: never Substance use: current Substance use type: marijuana Last use: about once a week Gender identity (if verbalized by the patient): Female Spiritual care concerns: No Meds Home Medications and Allergies Home Medications Medication Instructions Recorded Confirmed Type Gummies 2 tablet PO DAILY 06/29/20 06/29/20 History hydrocodone-acetaminophen 1 tablet PO Q3H PRN #25 tablet 07/03/20 Rx Allergies Allergy/AdvReac Type Severity Reaction Status Date / Time cefaclor Allergy Unknown Rash Verified 01/21/20 14:31 Penicillins Allergy Unknown Rash Verified 01/21/20 14:31 Exam Const: General: awake and anxious Resp: Effort & Inspection: normal respiratory effort GI: Inspection: normal to inspection GI Palp: No abdominal tenderness : Manual OB Exam: dilated 6 cm Amniotic Fluid: clear Assessment and Plan Assessment and plan (1) premature rupture of membranes (PPROM) delivered, current hospitalization: Code(s): O42.919 - premature rupture of membranes, unspecified as to length of time between rupture and onset of labor, unspecified trimester Status: Acute Assessment and Plan: Proceeded with emergent LTCS (2) 32 weeks gestation of : Code(s): Z3A.32 - 32 weeks gestation of Status: Acute (3) Breech presentation: Code(s): O32.1XX0 - Maternal care for breech presentation, not applicable or unspecified Status: Acute (4) Encounter for sterilization: Code(s): Z30.2 - Encounter for sterilization Status: Acute Assessment and Plan: proceeded with tubal ligation
== END 2020-07-03 10:10 | disposition home or self-care (01) | DRG 540 ==
LOC: ANHOBPP 07-01 12:58 → ANHLDR 07-01 22:45 → ANHOB2 07-02 04:07
PROVIDERS: Admitting Provider Obstetrics & Gynecology Gynecology; Visit Provider Obstetrics & Gynecology Gynecology
PROC: 10D00Z1 Extraction of Products of Conception, Low, Open Approach (ICD-10-PCS; CPT 59514; principal; 2020-07-01 22:35)
DX: O60.14X0 Preterm labor third trimester with preterm delivery third trimester, not applicable or unspecified (principal); Z30.2 Encounter for sterilization; O43.123 Velamentous insertion of umbilical cord, third trimester; O99.334 Smoking (tobacco) complicating childbirth; O32.8XX0 Maternal care for other malpresentation of fetus, not applicable or unspecified; Z3A.32 32 weeks gestation of pregnancy; Z37.0 Single live birth; O42.913 Preterm premature rupture of membranes, unspecified as to length of time between rupture and onset of labor, third trimester; F17.210 Nicotine dependence, cigarettes, uncomplicated
CPT/HCPCS: 36415; 80307; 81001; 84112; 85025; 86592; 86703; 86850; 86900; 86901; 88302; 88307; 93005; A9270; G0432; J0131; J0330; J0702; J1885; J2210; J2405; J2590; J2704; J3010; J3105; J3475; J7120

== ENCOUNTER 2021-03-25 16:15 | Outpatient (NON) | payer OTHER, SELFPAY | END 2021-03-25 16:16 | disposition home or self-care (01) | LOC: CHSLAB 16:18 | PROVIDERS: Visit Provider Nurse Practitioner Family | DX: Z12.4 Encounter for screening for malignant neoplasm of cervix (principal); Z13.89 Encounter for screening for other disorder | CPT/HCPCS: 87491; 87591; 88175; G0145 ==

== ENCOUNTER 2021-07-23 14:48 | Emergency (ER) | payer OTHER, SELFPAY ==
--- NOTE | ~2021-07-23 | CT_ITS ---
EXAMINATION: CT abdomen pelvis wo con DATE: 07/23/2021 15:48 INDICATION: Right flank pain for 3 days TECHNIQUE: Computed tomography (CT) of the abdomen and pelvis was performed without intravenous contr ast. Automated exposure control and iterative reconstruction technique were employed. Exam dose: 179 .22 mGy-cm total exam DLP. COMPARISON: None. FINDINGS: The lung bases are clear. Normal heart size. No pericardial or pleural effusion. Status post cholecystectomy. No bile duct or pancreatic duct dilatation. No hepatic, splenic, pancreatic, adrenal or renal space-occupying mass lesion is detected. There is a pinpoint nonobstructing lower pole right renal calculus. No ureteral calculus or hydrouret eronephrosis is evident. Normal caliber of the abdominal aorta. The uterus, adnexal areas and urinary bladder are unremarkable. There is mild free fluid in the cul-d e-sac, possibly physiologic; differential diagnosis includes ruptured ovarian cyst, pelvic inflammato ry disease, ruptured ectopic . Normal appearing retrocecal appendix. There is a prominent amount of fecal material in the colon but no evidence of bowel obstruction, bowel wall thickening, pneumatosis or intraperitoneal free air. Included skeletal structures are unremarkable. IMPRESSION: Mild to moderate free fluid in the cul-de-sac; differential diagnosis is given above Pinpoint nonobstructing right renal calculus; no ureteral calculus or hydroureteronephrosis is noted on either side Status post cholecystectomy Normal retrocecal appendix Reviewed, dictated and finalized at [facility]. Reviewed, dictated and finalized at [facility]. IMPRESSION: Mild to moderate free fluid in the cul-de-sac; differential diagnos is is given above Pinpoint nonobstructing right renal calculus; no ureteral calculus or hydrouret eronephrosis is noted on either side Status post cholecystectomy Normal retrocecal appendix
[2021-07-23 15:07] VITALS: BP 100/59; PULSE 111; RESP 20; TEMP 36.9; O2SAT 100
--- NOTE | 2021-07-23 15:11 | ED.BACK ---
HPI - Back Pain/Injury General Chief Complaint: Back Pain/Injury Stated Complaint: back pain Time Seen by Provider: 07/23/21 15:11 Source: patient Mode of arrival: ambulatory Limitations: no limitations History of Present Illness HPI Narrative: this is a 25-year-old female that presents with right flank pain over the last 3 days progressively worsening with no fever chills no nausea vomiting does radiate into her right groin and suprapubic area, with no shortness of breath no chest pain. Patient has no significant past medical history, there is some mild dysuria with no hematuria. MD elicited complaint: back pain Onset (ago): day(s) Timing: constant Severity: moderate Pain scale (0-10): 7 Similar Symptoms Previously: No Quality: dull Location: right flank Radiation: groin Exacerbating factors: none Relieving factors: medication Related Data Allergies Allergy/AdvReac Type Severity Reaction Status Date / Time cefaclor Allergy Unknown Rash Verified 07/23/21 15:02 Penicillins Allergy Unknown Rash Verified 07/23/21 15:02 Review of Systems Review of Systems: All systems reviewed & are unremarkable except as noted in HPI and below PMFSH Past Medical History Medical History Anxiety Chronic GERD Marijuana smoker Marijuana use (normal spontaneous vaginal delivery) x 2 both at 36 weeks PIH with first labor with term delivery Smoker Surgical History Surgical History History of cholecystectomy S/P 07/01/20 S/P LEEP for ANA 3 on 07/15 Status post cervicectomy Social History Social History Smoking packs per day: 0.5 Smoking cigarettes per day: 10.0 Years smoked: 8 Smoking pack-years: 4.00 Smoking status: Current every day smoker Tobacco type: cigarettes Second hand tobacco smoke exposure: No Alcohol intake: never Substance use: current Substance use type: marijuana Last use: about once a week Gender identity (if verbalized by the patient): Female Spiritual care concerns: No Exam Const: General: no acute distress and alert Orientation/consciousness: patient oriented x3 HENMT: Head: normal to inspection Eyes: Conjunctivae: conjunctivae normal Pupils: Equal, round and reactive pupils present Neck: Neck: normal visual inspection Chest: Chest palpation & inspection: normal inspection of the chest Resp: Effort & Inspection: normal respiratory effort Auscultation: clear to auscultation bilaterally Cardio: Rate: regular rate Rhythm: regular rhythm GI: Auscultation: normal bowel sounds : General: Yes CVA tenderness ( Right flank with palpation) Back/Spine/Pelvis: Back: CVA tenderness Skin: General skin exam: normal color Rashes: no rashes Neuro: General: patient oriented x3, moves all extremities, no meningeal signs and no focal motor deficits Extrem: General: normal to inspection Psych: Mental Status: mental status grossly normal Affect: normal affect Attitude: cooperative Course Course Emergency Course: patient with some pain level initially 7/10 received IV Toradol 30mg, reassessment of patient pain level has improved. CT scan of abdomen and pelvis reviewed with patient as well as urinalysis and laboratory work. Critical Care Time Critical Care Time Critical Care Time: No Discharge Plan Discharge Clinical Impression: Kidney stone UTI (urinary tract infection) Qualifiers: Urinary tract infection type: acute cystitis Hematuria presence: without hematuria Qualified Code(s): N30.00 - Acute cystitis without hematuria Patient Disposition: Home, Self-Care Condition: Stable Instructions: Antibiotic Form, Kidney Stones (ED), Urinary Tract Infection in Women (ED) Additional Instructions: take medicine as prescribed and follow-up with primary care physician if symptoms persist or worsen. Prescriptio
[2021-07-23] MEDS: SODIUM CHLORIDE 0.9% IV 1,000 ML 999 ML IV CONT (15:24)
[2021-07-23] MEDS: KETOROLAC 30 MG/ML VIAL (*BKC) IV PUSH (15:25)
[2021-07-23 15:30] LABS: Basophils Absolute Auto 0.02 K/mm3 (0.00-0.10); Basophils Percent Auto 0.1 % (0.0-1.0); Eosinophils Absolute Auto 0.02 K/mm3 (0.02-0.50); Eosinophils Percent Auto 0.1 % (1.0-6.0); Hematocrit 39.1 % (35.0-49.0); Hemoglobin 13.2 g/dL (12.0-15.0); Immature Granulocyte Absolute 0.06 K/mm3 (0.00-0.00); Immature Granulocyte Percent A 0.4 % (0.0-0.0); Lymphocytes Absolute Auto 1.26 K/mm3 (1.10-4.50); Lymphocytes Percent Auto 8.7 % (18.0-42.0); Mean Corpuscular HGB Conc 33.8 g/dL (32.0-36.0); Mean Corpuscular Hemoglobin 29.8 pg (27.0-31.0); Mean Corpuscular Volume 88.3 fL (78.0-102.0); Mean Platelet Volume 9.6 fl (9.2-11.8); Monocytes Absolute Auto 1.72 K/mm3 (0.10-0.90); Monocytes Percent Auto 11.9 % (2.0-11.0); Neutrophils Absolute Auto 11.3 K/mm3 (1.7-7.2); Neutrophils Percent Auto 78.8 % (50.0-70.0); Platelet Count Result 211 K/mm3 (150-420); Red Blood Count 4.43 M/mm3 (4.20-5.40); Red Cell Distribution Width 12.1 % (11.6-14.4); White Blood Count 14.4 K/mm3 (4.8-10.8)
[2021-07-23 15:32] LABS: Add Urine Microscopic? YES; Appearance Urine Slightly Cloudy (Clear); Bilirubin Urine 1+ (Negative); Blood Urine 3+ (Negative); Color Urine Yellow (Yellow); Glucose Urine UA Negative (Negative); Ketones Urine Negative (Negative); Leukocyte Esterase Ur 3+ (Negative); Nitrate Urine Positive (Negative); Protein Urine 2+ (Negative)
[2021-07-23 15:34] LABS: Pregnancy On Board Control Positive; Urine Pregnancy Test Negative
[2021-07-23 15:39] LABS: Bacteria Urine 1+ /hpf; Squamous Epithelial Cell Urine Moderate /hpf (Few); WBC Urine 16-20 /hpf (0-3)
[2021-07-23 15:46] LABS: Alanine Aminotransferase 54 U/L (14-59); Albumin Level 3.1 g/dL (3.4-5.0); Alkaline Phosphatase 123 U/L (46-116); Anion Gap 8 mmol/L (8-16); Aspartate Amino Transferase 37 U/L (15-37); Blood Urea Nitrogen 9 mg/dL (7-18); Calcium 8.5 mg/dL (8.5-10.1); Carbon Dioxide 25 mmol/L (21-32); Chloride 101 mmol/L (98-108); Estimated CRCL calculation 75 ml/min; Estimated Glomerular Filt Rate > 60; Glucose 109 mg/dL (70-99); Osmolality Calculated 277 mOsm/kg (285-295); Potassium 3.6 mmol/L (3.5-5.1); Sodium 134 mmol/L (136-145); Total Protein 7.1 g/dL (6.4-8.2)
[2021-07-23] MEDS: levoFLOXacin 500 MG/D5W 100 ML 500 MG/100 ML BAG 100 MG IVPB (16:09)
--- NOTE | 2021-07-23 16:31 | PC.NURSE ---
ERP at bedside discussing test results and plan of care.
--- NOTE | 2021-07-23 17:05 | PC.NURSE ---
Report given to EDWARD Moreno
== END 2021-07-23 17:10 | disposition home or self-care (01) ==
PROVIDERS: Emergency Provider Emergency Medicine
DX: N20.0 Calculus of kidney (principal); N30.00 Acute cystitis without hematuria
CPT/HCPCS: 36415; 74176; 80053; 81001; 81025; 85025; 96361; 96365; 96375; 99284; J1885; J1956; J7030

== ENCOUNTER 2021-12-04 11:00 | Emergency (ER) | payer OTHER, SELFPAY ==
[2021-12-04 11:08] VITALS: BP 101/61; PULSE 88; RESP 19; TEMP 36.3; O2SAT 98
[2021-12-04 11:12] VITALS: BP 101/67; PULSE 88; RESP 16; TEMP 36.3; O2SAT 98
--- NOTE | 2021-12-04 12:07 | ED.EAR ---
HPI - Ear Problem General Chief complaint: Dental/Oral Stated complaint: EAR HURTS AND FACE SWELLING R SIDE Time Seen by Provider: 12/04/21 11:03 Source: patient and RN notes reviewed Mode of arrival: ambulatory Limitations: no limitations History of Present Illness Complaint: ear pain Location: right ear Duration: constant Severity: moderate Relieving factors: nothing Exacerbating factors: nothing Discharge from ear: Reports no Associated symptoms ear: decreased hearing Related Data Allergies Allergy/AdvReac Type Severity Reaction Status Date / Time cefaclor Allergy Unknown Rash Verified 12/04/21 11:18 Penicillins Allergy Unknown Rash Verified 12/04/21 11:18 Review of Systems Review of Systems: All systems reviewed & are unremarkable except as noted in HPI and below Constitutional: Constitutional: Reports no additional constitutional complaints Eyes: Eyes: Reports no additional eye complaints ENT: Reports system reviewed and no additional complaints, except as documented Comments: right earache Cardiovascular: Cardiovascular: Reports no additional cardiovascular complaints Respiratory: Respiratory: Reports no additional respiratory complaints Gastrointestinal: Gastrointestinal: Reports no additional gastrointestinal complaints Genitourinary: Genitourinary: Reports no additional female genitourinary complaints Musculoskeletal: Musculoskeletal: Reports no additional musculoskeletal complaints Integumentary/Breasts: Skin/Breast: Reports system reviewed and no additional complaints, except as docu Neurologic: Reports system reviewed and no additional complaints, except as documented Psychiatric: Psychiatric: Reports no additional psychiatric complaints Endocrine: Endocrine: Reports no additional endocrine complaints Hematologic/Lymphatic: Hematologic/Lymphatic: Reports no additional hematologic/lymphatic complaints Allergic/Immunologic: Allergic/Immunologic: Reports no additional allergic/immunologic complaints PMFSH Past Medical History Medical History Anxiety Chronic GERD Marijuana smoker Marijuana use (normal spontaneous vaginal delivery) x 2 both at 36 weeks PIH with first Otitis media labor with term delivery Right ear pain Smoker Surgical History Surgical History History of cholecystectomy S/P 07/01/20 S/P LEEP for ANA 3 on 07/15 Status post cervicectomy Social History Social History Smoking packs per day: 0.5 Smoking cigarettes per day: 10.0 Years smoked: 8 Smoking pack-years: 4.00 Smoking status: Current every day smoker Tobacco type: cigarettes Second hand tobacco smoke exposure: No Alcohol intake: never Substance use: current Substance use type: marijuana Last use: about once a week Gender identity (if verbalized by the patient): Female Spiritual care concerns: No Exam Const: General: no acute distress Nutritional Appearance: well nourished Orientation/consciousness: patient oriented x3 Limitations: no limitations HENMT: Head: normal to inspection Ears: external ears normal and EAC's normal General nose exam: Normal external nose present and Normal nares present Face and sinus: normal facial exam and sinuses nontender Mouth: Yes Normal oral and palatal mucosa present and Yes moist mucous membranes Teeth and gingiva: dentition normal Other: red and dull right TM, dull left TM, mild pharyngeal redness. Eyes: Conjunctivae: conjunctivae normal Pupils: Equal, round and reactive pupils present EOM: EOMs intact bilaterally Neck: Neck: normal visual inspection, no lymphadenopathy and no meningeal signs Chest: Chest palpation & inspection: normal inspection of the chest Resp: Effort & Inspection: normal respiratory effort Auscultation: clear to auscultation bilaterally Cardio: Rate: regular
[2021-12-04] MEDS: IBUPROFEN 400 MG TABLET 800 MG PO (12:14)
[2021-12-04 12:25] VITALS: BP 96/54; PULSE 63; RESP 17; TEMP 36.1; O2SAT 99
== END 2021-12-04 12:27 | disposition home or self-care (01) ==
PROVIDERS: Emergency Provider Emergency Medicine
DX: H66.91 Otitis media, unspecified, right ear (principal); H69.91 Unspecified Eustachian tube disorder, right ear
CPT/HCPCS: 99283; A9270

== ENCOUNTER 2022-06-12 21:25 | Emergency (ER) | payer OTHER, SELFPAY ==
[2022-06-12 21:25] VITALS: BP 119/83; PULSE 78; RESP 20; TEMP 36.8; O2SAT 98
--- NOTE | 2022-06-12 21:36 | ED.WOUNDLAC ---
HPI - Wound/Laceration General Stated Complaint: Laceration Source: patient Mode of arrival: ambulatory Limitations: no limitations History of Present Illness HPI narrative: this is a 26-year-old female that presents after she cut her hand in 3 distinct places causing avulsion injury after she was changing a light bulb and there was a small juan of glass /slight low in the and the avulsion area otherwise currently no bleeding no numbness or tingling and is a good range of motion in her hand and they are superficial avulsion injuries. Onset (ago): hour(s) Location: other Extremity Location: Left: hand ( Avulsion injury) Place: home Patient tetanus UTD: Yes Context: accidental Associated symptoms: none Related Data Home Medications Medication Instructions Recorded Confirmed No Home Medications 06/12/22 06/12/22 Allergies Allergy/AdvReac Type Severity Reaction Status Date / Time cefaclor Allergy Unknown Rash Verified 12/04/21 11:18 Penicillins Allergy Unknown Rash Verified 12/04/21 11:18 Review of Systems Review of Systems: All systems reviewed & are unremarkable except as noted in HPI and below PMFSH Past Medical History Medical History Anxiety Chronic GERD Marijuana smoker Marijuana use (normal spontaneous vaginal delivery) x 2 both at 36 weeks PIH with first Otitis media labor with term delivery Right ear pain Smoker Surgical History Surgical History History of cholecystectomy S/P 07/01/20 S/P LEEP for ANA 3 on 07/15 Status post cervicectomy Social History Social History Smoking packs per day: 0.5 Smoking cigarettes per day: 10.0 Years smoked: 8 Smoking pack-years: 4.00 Smoking status: Current every day smoker Tobacco type: cigarettes Second hand tobacco smoke exposure: No Alcohol intake: never Substance use: current Substance use type: marijuana Last use: about once a week Living arrangements: with family Occupation/Education: unemployed Gender identity (if verbalized by the patient): Female Spiritual care concerns: No Exam Const: General: healthy appearing Nutritional Appearance: well nourished Orientation/consciousness: patient oriented x3 Limitations: no limitations HENMT: Head: normal to inspection Eyes: Conjunctivae: conjunctivae normal Pupils: Equal, round and reactive pupils present Neck: Neck: normal visual inspection Chest: Chest palpation & inspection: normal inspection of the chest Resp: Effort & Inspection: normal respiratory effort Auscultation: clear to auscultation bilaterally Cardio: Rate: regular rate Rhythm: regular rhythm GI: GI Palp: Yes Soft to palpation Skin: Wounds: wounds noted Other: Avulsion injuries 3 distinct areas proximally 0.5cm each an area that had HR of glass was removed there is superficial antibiotic ointment was applied. Neuro: General: patient oriented x3 Cranial nerves: Yes Nystagmus not present Speech: normal speech Extrem: General: normal to inspection Psych: Mental Status: mental status grossly normal Affect: normal affect Course Course Emergency Course: A area was cleaned and examined and chart of glass was removed 1 of the 3 of also in injuries that were not deep no need for suturing no Dermabond applied, patient is up-to-date with her tetanus and triple antibiotic ointment was applied to the wound the wounds. Critical Care Time Critical Care Time Critical Care Time: No Discharge Plan Discharge Clinical Impression: Avulsion of skin of hand Qualifiers: Encounter type: initial encounter Laterality: left Qualified Code(s): S61.402A - Unspecified open wound of left hand, initial encounter Patient Disposition: Home, Self-Care Condition: Stable Instructions: Antibiotic Form, Skin Avulsion (ED) Additional Instructions: ad
[2022-06-12] MEDS: NEOMYCIN/POLYMYXIN/BACITRACIN OINTMENT PACKET 1 PACKET TOPICAL (21:43)
== END 2022-06-12 21:56 | disposition home or self-care (01) ==
LOC: CHSED 21:43
PROVIDERS: Emergency Provider Emergency Medicine
DX: S61.422A Laceration with foreign body of left hand, initial encounter (principal); F17.210 Nicotine dependence, cigarettes, uncomplicated; W25.XXXA Contact with sharp glass, initial encounter
CPT/HCPCS: 99283

== ENCOUNTER 2022-10-04 19:36 | Emergency (ER) | payer OTHER, SELFPAY ==
--- NOTE | ~2022-10-04 | XR_ITS ---
EXAMINATION: XR finger 1st RT min 2V DATE: 10/04/2022 20:10 INDICATION: Right thumb pain and swelling. Foreign body. TECHNIQUE: 4 views of right thumb were obtained. COMPARISON: Right wrist radiographs 12/24/2009 FINDINGS: Bone alignment is normal. No fracture. Joint spaces are normal. IMPRESSION: 1. No radiopaque foreign body. Reviewed, dictated and finalized at location E.
--- NOTE | 2022-10-04 19:41 | ED.GENADULT ---
HPI - General Adult General Chief complaint: Skin/Abscess/Foreign Body Stated complaint: left thumb pain; foreign object Time Seen by Provider: 10/04/22 19:40 History of Present Illness HPI narrative: Aurelia is a 26F with a PMH of poor dentition, OCD and nicotine abuse that presente to the ED with pain in her right thumb that has been getting worse for a few days. She has been working with a lot of glass and metal shards with epoxy while redoing a floor in her house. It feels like there is a foreign object and it is getting more swollen and painful. She feels like it may have had some scant drainage but she is not sure. No fevers, chills, N/V, CP, dyspnea or dysphagia. Related Data Allergies Allergy/AdvReac Type Severity Reaction Status Date / Time cefaclor Allergy Unknown Rash Verified 12/04/21 11:18 Penicillins Allergy Unknown Rash Verified 12/04/21 11:18 Review of Systems Review of Systems: All systems reviewed & are unremarkable except as noted in HPI and below PMFSH Past Medical History Medical History Anxiety Chronic GERD Marijuana smoker Marijuana use (normal spontaneous vaginal delivery) x 2 both at 36 weeks PIH with first Otitis media labor with term delivery Right ear pain Smoker Surgical History Surgical History History of cholecystectomy S/P 07/01/20 S/P LEEP for ANA 3 on 07/15 Status post cervicectomy Social History Social History Smoking packs per day: 0.5 Smoking cigarettes per day: 10.0 Years smoked: 8 Smoking pack-years: 4.00 Smoking status: Current every day smoker Tobacco type: cigarettes Second hand tobacco smoke exposure: No Alcohol intake: never Substance use: current Substance use type: marijuana Last use: about once a week Living arrangements: with family Occupation/Education: unemployed Gender identity (if verbalized by the patient): Female Spiritual care concerns: No Exam Const: General: healthy appearing and no acute distress Nutritional Appearance: well nourished Orientation/consciousness: patient oriented x3 HENMT: Head: normal to inspection Ears: external ears normal and TM's normal bilaterally Eyes: Conjunctivae: conjunctivae normal Pupils: Equal, round and reactive pupils present Neck: Neck: normal visual inspection Chest: Chest palpation & inspection: normal inspection of the chest Resp: Effort & Inspection: normal respiratory effort Auscultation: clear to auscultation bilaterally Cardio: Rate: regular rate Rhythm: regular rhythm Skin: General skin exam: normal color Rashes: no rashes Other: Right thumb pad was swollen and TTP. No fluctuance palpated but there was some induration and an opening but no drainage at this time Neuro: General: patient oriented x3 and moves all extremities Cranial nerves: Yes Nystagmus not present Extrem: General: normal to inspection Psych: Mental Status: mental status grossly normal Affect: normal affect Course Course Emergency Course: EXAMINATION: XR finger 1st RT min 2V DATE: 10/04/2022 20:10 INDICATION: Right thumb pain and swelling. Foreign body. TECHNIQUE: 4 views of right thumb were obtained. COMPARISON: Right wrist radiographs 12/24/2009 FINDINGS: Bone alignment is normal. No fracture. Joint spaces are normal. IMPRESSION: 1. No radiopaque foreign body. We discussed further I&D vs watchful waiting. However, she was very opposed to any needle or cutting and decided on watchful waiting and abx Vital Signs Vital signs: Vital Signs Temperature 98.2 F 10/04/22 19:46 Pulse Rate 97 10/04/22 19:46 Respiratory Rate 18 10/04/22 19:46 Blood Pressure 124/84 10/04/22 19:46 Pulse Oximetry 99 10/04/22 19:46 Oxygen Delivery Room Air 10/04/22 19:46 Temperature 98.2 F 10/04/22 19:46 Pulse Rate 97 0
[2022-10-04 19:46] VITALS: BP 124/84; PULSE 97; RESP 18; TEMP 36.8; O2SAT 99
[2022-10-04] MEDS: CLINDAMYCIN HCL 150 MG CAP 450 MG PO (20:28)
[2022-10-04 20:32] VITALS: BP 128/75; PULSE 87; RESP 18; TEMP 36.6; O2SAT 99
== END 2022-10-04 20:35 | disposition home or self-care (01) ==
PROVIDERS: Emergency Provider Family Medicine
DX: L03.011 Cellulitis of right finger (principal); F17.210 Nicotine dependence, cigarettes, uncomplicated
CPT/HCPCS: 73140; 99283; A9270